=== PATIENT | male | born 1965 | race Caucasian/White ===

== ENCOUNTER 2017-09-01 04:51 | Emergency (ER) | payer BC ==
[~2017-09-01] VITALS: Ht 190.5 cm; Wt 95.0 kg
[~2017-09-01 04:51] MED LIST: ALPR.5 PO; DOCU1CAP39 PO; OXYC1SOL5 PO; RANI150 PO; WARF6 PO
[2017-09-01 04:57] VITALS: BP 137/81; PULSE 71; RESP 18; TEMP 97.7; O2SAT 100
--- NOTE | 2017-09-01 18:59 | EKG ---
Date Performed: 09/01/2017 Time Performed: 05:52:04 PTAGE: 52 years EKG: Sinus rhythm NORMAL ECG Since the prior tracing, there has been no significant change PREVIOUS TRACING : 06/27/2014 15.18 DOCTOR: Michael Summers Interpretating Date/Time 09/01/2017 18:56:54
== END 2017-09-01 06:15 | disposition left against medical advice (07) ==
LOC: NED 04:51
DX: R10.9 Unspecified abdominal pain (principal)
CPT/HCPCS: 93005; 99281